=== PATIENT | female | born 1985 | race Caucasian/White ===

== ENCOUNTER 2016-10-09 22:33 | Emergency (ER) | payer BC, OTHER ==
[2016-10-10] MEDS ORDERED: ONDANSETRON 4 MG/2ML 2 ML VIAL ONE (01:15)
[2016-10-10] MEDS ORDERED: MORPHINE SULFATE 4 MG/ML SYRINGE ONE (01:15)
[2016-10-10] MEDS ORDERED: SODIUM CHLORIDE 0.9% 1,000 ML ONE (01:15)
[2016-10-10 01:20] LABS: ABSOLUTE NEUTROPHIL COUNT 4.2 K/mm3 (1.8-7.7); BASO # 0.1 K/mm3 (0.0-0.2); BASO % 0.6 % (0.2-1.0); EOS # 0.2 (0.0-0.5); EOS % 2.6 % (0.9-2.9); HEMOGLOBIN 12.7 gm/l (12.0-16.0); IMM NEUT% 0.2 % (0-1); LYMPH # 3.9 (1.0-4.8); LYMPH % 42.9 % (15-45); MEAN CELL VOLUME 86.9 fl (81.0-99.0); MEAN CORPUSCULAR HEMOGLOBIN 28.3 pg (27.0-31.0); MEAN CORPUSCULAR HGB CONC 32.6 g/dl (33.0-37.0); MEAN PLATELET VOLUME 10.1 fl (7.4-10.4); MONO # 0.6 (0.0-0.8); MONO % 6.8 % (4-12); NEUT % 46.9 % (43-75); PLATELET COUNT 236 K/mm3 (130-400)
[2016-10-10 01:24] LABS: SPECIFIC GRAVITY 1.025 (1.001-1.030); URINE BILIRUBIN NEGATIVE (NEGATIVE); URINE BLOOD NEGATIVE (NEGATIVE); URINE GLUCOSE (UA) NEGATIVE (NEGATIVE); URINE LEUKOCYTE ESTERASE NEGATIVE (NEGATIVE); URINE NITRITE NEGATIVE (NEGATIVE); URINE PROTEIN NEGATIVE (NEGATIVE); URINE UROBILINOGEN NORMAL (0-1 mg/dl)
[2016-10-10 01:27] LABS: HCG,QUALITATIVE URINE NEGATIVE; URINE APPEARANCE CLEAR; URINE COLOR YELLOW
[2016-10-10 01:36] LABS: ALB/GLOB RATIO 1.2 (>1.0); ALBUMIN 4.1 gm/dL (3.5-5.7); CALCIUM 10.6 mg/dL (8.6-10.3)
--- NOTE | 2016-10-10 08:45 | US ---
EXAMINATION: Limited gallbladder ultrasound examination was performed. CLINICAL INDICATION: Right upper quadrant pain. COMPARISON: Right upper quadrant pain following meals. FINDINGS: Gallbladder: 8.3 x 2.2 centimeters. There is a gallbladder polyp measuring 0.7 cm in diameter. Cholelithiasis:None Gallbladder wall thickness: 2.0 millimeters. Pericholecystic fluid: Absent Common bile duct:Not dilated and measures 4 millimeters. Sonographic Christopher's sign: None elicited IMPRESSION: No evidence of cholelithiasis, cholecystitis or biliary obstruction. 7 mm gallbladder polyp is noted. Findings were communicated by [facility] to the emergency department at: 2:32 AM 10/10/2016
== END 2016-10-10 03:29 | disposition home or self-care (01) ==
LOC: ED 22:33
DX: R10.11 Right upper quadrant pain (principal)
CPT/HCPCS: 83690; 81025; 85025; 80053; 81003; 76705; 96375; 99284; 96374; 99283; J2270; J2405; J7030